=== PATIENT | female | born 2000 | race Caucasian/White ===

== ENCOUNTER 2018-01-20 18:24 | Emergency (ER) | payer BC, MEDICAID ==
[~2018-01-20 18:24] MED LIST: CEPH500C24 PO; LOR5/325 PO
[2018-01-20] MEDS ORDERED: NS(*) 0.9% 1000 ML BAG 1,000 ML IV ONE (18:44)
--- NOTE | 2018-01-20 18:48 | ER Report ---
History and Physical Time Seen By MD: 18:46 Hx. of Stated Complaint: PASSED OUT. CUT ON CHIN, BIT TONGUE, SCUFFS ON BOTH KNEES HPI/ROS CC: Syncopal episode HISTORY OF PRESENT ILLNESS: Patient is a 17-year-old female here status post syncopal episode shortly prior to arrival while at a [employer]. Patient reports having similar episodes in the past which have become more and more frequent. Patient reports that she became acutely dizzy and then lost consciousness and was witnessed to have shaking activity after passing out with confusion after the episode. Patient reportedly fell forward and struck her chin however denies headache, blurred vision, difficulty closing her mouth, chest pain, shortness breath, fevers or chills. Patient has not had prior workup for this complaint and has not been evaluated by a neurologist. REVIEW OF SYSTEMS: Constitutional: No fever, no chills. Eyes: No discharge. ENT: No sore throat. Cardiovascular: No chest pain, no palpitations. Respiratory: No cough, no shortness of breath. Gastrointestinal: No abdominal pain, no vomiting. Genitourinary: No hematuria. Musculoskeletal: No back pain. Skin: No rashes. Neurological: + mild headache. Allergies: Coded Allergies: No Known Drug Allergies (Unverified , 01/20/18) Home Meds No Active Prescriptions or Reported Meds Hx Smoking: No Smoking Status: Never Smoker Exposure to Second Hand Smoke?: No Hx Substance Use Disorder: Yes (WEED) Hx Alcohol Use: No Constitutional Vital Sign - Last 24 Hours 01/20/18 01/20/18 01/20/18 01/20/18 18:30 18:32 18:39 19:00 Temp 98.3 Pulse 89 85 Resp 16 12 B/P (MAP) 119/78 (92) 119/78 125/84 (98) Pulse Ox 98 97 O2 Delivery Room Air 01/20/18 01/20/18 01/20/18 01/20/18 19:24 19:54 20:00 20:09 Pulse 89 82 84 Resp 13 12 8 B/P (MAP) 106/69 (81) Pulse Ox 96 97 01/20/18 01/20/18 01/20/18 20:14 20:29 20:43 Pulse 80 72 85 Resp 9 6 16 B/P (MAP) 132/88 (103) Pulse Ox 95 95 95 O2 Delivery Room Air Physical Exam General Appearance: The patient is alert, has no immediate need for airway protection and no signs of toxicity. No acute distress Eyes: Pupils equal and round no pallor or injection. ENT, Mouth: Mucous membranes are moist, + small abrasion on chin Respiratory: There are no retractions, lungs are clear to auscultation. Cardiovascular: Regular rate and rhythm. Gastrointestinal: Abdomen is soft and non tender, no masses, bowel sounds normal. Neurological: No focal deficits Skin: Warm and dry, no rashes. Musculoskeletal: Neck is supple non tender. Extremities are nontender, nonswollen and have full range of motion. DIFFERENTIAL DIAGNOSIS: After history and physical exam differential diagnosis was considered for electrolyte imbalance, intracranial mass, dehydration, vasovagal episode, seizure disorder Medical Decision Making Data Points Result Diagram: 01/20/18184901/20/181849 Laboratory Hematology Test 01/20/18 18:50 01/20/18 20:24 Red Blood Count 5.28 M/uL (4.17-5.56) Mean Corpuscular Volume 90.1 fL (80.0-96.0) Mean Corpuscular Hemoglobin 31.6 pg (26.0-33.0) Mean Corpuscular Hemoglobin Concent 35.0 g/dL (32.0-36.0) Red Cell Distribution Width 12.9 % (11.5-14.5) Mean Platelet Volume 9.6 fL (7.2-11.1) Neutrophils (%) (Auto) 58.7 % (39.4-72.5) Lymphocytes (%) (Auto) 31.8 % (17.6-49.6) Monocytes (%) (Auto) 6.9 % (4.1-12.4) Eosinophils (%) (Auto) 1.8 % (0.4-6.7) Basophils (%) (Auto) 0.8 % (0.3-1.4) Nucleated RBC Relative Count (auto) 0.0 /100WBC Neutrophils # (Auto) 4.8 K/uL (2.0-7.4) Lymphocytes # (Auto) 2.6 K/uL (1.3-3.6) Monocytes # (Auto) 0.6 K/uL (0.3-1.0) Eosinophils # (Auto) 0.1 K/uL (0.0-0.5) Basophils # (Auto) 0.1 K/uL (0.0-0.1) Nucleated RBC Absolute Count (auto) 0.00 K/uL Sodium Level 140 mmol/L (137-145) Potassium Level 3.7 mmol/L (3.5-5.0) Chloride Level 104 mmol/L (98-107) Carbon Dioxide Level 26 mmol/L (22-31) Blood Urea Nitrogen 13 mg/dl (7-18) Creatinine 0.80 mg/dl (0.52-1.04) Glomerular Filtration Rate Calc > 60.0 Random Glucose 114 mg/dl (75-110) Calcium Level 9.1 mg/dl (8.4-10.2) Total Bilirubin 0.9 mg/dl (0.2-1.3) Aspartate Amino Transf (AST/SGOT) 17 U/L (0-35) Alanine Aminotransferase (ALT/SGPT) 19 U/L (0-56) Alkaline Phosphatase 45 U/L (0-126) Total Protein 7.7 g/dl (6.3-8.2) Albumin 4.6 g/dl (3.5-5.0) Human Chorionic Gonadotropin, Qual Negative (NEGATIVE) Urine Color Straw Urine Clarity Clear Urine pH 6.0 pH (4.8-9.5) Urine Specific [place] 1.005 Urine Protein Negative mg/dL (NEGATIVE) Urine Glucose (UA) Negative mg/dL (NEGATIVE) Urine Ketones Negative mg/dL (NEGATIVE) Urine Blood Negative (NEGATIVE) Urine Nitrite Negative (NEGATIVE) Urine Bilirubin Negative (NEGATIVE) Urine Urobilinogen Negative mg/dL (0.2-1.9) Urine Leukocyte Esterase Negative (NEGATIVE) Urine RBC None /HPF (0-2/HPF) Urine WBC <1 /HPF (0-5/HPF) Urine Squamous Epithelial Cells Many /LPF (</=FEW) Urine Bacteria Negative /HPF (NONE-FEW) Urine Mucus Few /HPF (NONE-FEW) Chemistry Test 01/20/18 18:50 01/20/18 20:24 White Blood Count 8.1 k/uL (4.5-11.0) Red Blood Count 5.28 M/uL (4.17-5.56) Hemoglobin 16.7 g/dL (12.0-16.0) Hematocrit 47.6 % (34.0-47.0) Mean Corpuscular Volume 90.1 fL (80.0-96.0) Mean Corpuscular Hemoglobin 31.6 pg (26.0-33.0) Mean Corpuscular Hemoglobin Concent 35.0 g/dL (32.0-36.0) Red Cell Distribution Width 12.9 % (11.5-14.5) Platelet Count 212 K/uL (150-450) Mean Platelet Volume 9.6 fL (7.2-11.1) Neutrophils (%) (Auto) 58.7 % (39.4-72.5) Lymphocytes (%) (Auto) 31.8 % (17.6-49.6) Monocytes (%) (Auto) 6.9 % (4.1-12.4) Eosinophils (%) (Auto) 1.8 % (0.4-6.7) Basophils (%) (Auto) 0.8 % (0.3-1.4) Nucleated RBC Relative Count (auto) 0.0 /100WBC Neutrophils # (Auto) 4.8 K/uL (2.0-7.4) Lymphocytes # (Auto) 2.6 K/uL (1.3-3.6) Monocytes # (Auto) 0.6 K/uL (0.3-1.0) Eosinophils # (Auto) 0.1 K/uL (0.0-0.5) Basophils # (Auto) 0.1 K/uL (0.0-0.1) Nucleated RBC Absolute Count (auto) 0.00 K/uL Glomerular Filtration Rate Calc > 60.0 Calcium Level 9.1 mg/dl (8.4-10.2) Total Bilirubin 0.9 mg/dl (0.2-1.3) Aspartate Amino Transf (AST/SGOT) 17 U/L (0-35) Alanine Aminotransferase (ALT/SGPT) 19 U/L (0-56) Alkaline Phosphatase 45 U/L (0-126) Total Protein 7.7 g/dl (6.3-8.2) Albumin 4.6 g/dl (3.5-5.0) Human Chorionic Gonadotropin, Qual Negative (NEGATIVE) Urine Color Straw Urine Clarity Clear Urine pH 6.0 pH (4.8-9.5) Urine Specific [place] 1.005 Urine Protein Negative mg/dL (NEGATIVE) Urine Glucose (UA) Negative mg/dL (NEGATIVE) Urine Ketones Negative mg/dL (NEGATIVE) Urine Blood Negative (NEGATIVE) Urine Nitrite Negative (NEGATIVE) Urine Bilirubin Negative (NEGATIVE) Urine Urobilinogen Negative mg/dL (0.2-1.9) Urine Leukocyte Esterase Negative (NEGATIVE) Urine RBC None /HPF (0-2/HPF) Urine WBC <1 /HPF (0-5/HPF) Urine Squamous Epithelial Cells Many /LPF (</=FEW) Urine Bacteria Negative /HPF (NONE-FEW) Urine Mucus Few /HPF (NONE-FEW) Urinalysis Test 01/20/18 20:24 Urine Color Straw Urine Clarity Clear Urine pH 6.0 pH (4.8-9.5) Urine Specific [place] 1.005 Urine Protein Negative mg/dL (NEGATIVE) Urine Glucose (UA) Negative mg/dL (NEGATIVE) Urine Ketones Negative mg/dL (NEGATIVE) Urine Blood Negative (NEGATIVE) Urine Nitrite Negative (NEGATIVE) Urine Bilirubin Negative (NEGATIVE) Urine Urobilinogen Negative mg/dL (0.2-1.9) Urine Leukocyte Esterase Negative (NEGATIVE) Urine RBC None /HPF (0-2/HPF) Urine WBC <1 /HPF (0-5/HPF) Urine Squamous Epithelial Cells Many /LPF (</=FEW) Urine Bacteria Negative /HPF (NONE-FEW) Urine Mucus Few /HPF (NONE-FEW) EKG/Imaging EKG Interpretation 12 lead EKG: Normal sinus rhythm, rate 81, QTc interval 413 no ischemic changes Rhythm: Normal sinus rhythm [place]: normal QRS: normal ST segments: normal Monitor Interpretation: Normal Sinus Rhythm Imaging 2 VIEWS CHEST INDICATION: Syncope. COMPARISON: None available FINDINGS: Cardiomediastinal silhouette and pulmonary vessels within normal limits. There is no focal infiltrate or lobar consolidation. There is no pneumothorax or pleural effusion. No nodule. Upper abdomen is unremarkable. No acute bony abnormality. IMPRESSION: 1. No acute cardiopulmonary process. CT Head without contrast Indication: Syncope. Fell and hit right side of forehead. Comparison: None available Technique: Axial CT images were obtained through the brain from the skull base to the vertex without administration of IV contrast. Reformatted coronal and sagittal images were also obtained. One of the following dose optimization techniques was utilized in the performance of this exam: automated exposure control; adjustment of the mA and/ or kV according to the patient's size; or use of an iterative reconstruction technique. Specific details can be referenced in the facility's radiology CT exam operational policy. Findings: No evidence of mass, mass effect, or midline shift. No acute intracranial hemorrhage or acute territorial infarction. No extra-axial fluid collection or hydrocephalus. No abnormal density. Munoz/ white matter differentiation appears normal. Bony structures show no fractures or lesions. The visualized paranasal sinuses and mastoid air cells are clear. IMPRESSION: 1. Negative unenhanced CT of the head. ED Course/Re-evaluation ED Course Patient is a 17-year-old female here with complaints of a syncopal episode while at the [employer]. Patient reportedly fell foreign and struck her chin on the floor as witnessed by the patient's sister. Patient had shaking activity after the episode and was confused and did not recognize her sister. Patient admits to several similar episodes in the past which have become more and more frequent. Patient has had no prior workup regarding her syncopal episodes. Depart Departure Latest Vital Signs Vital Signs Date Time Temp Pulse Resp B/P (MAP) Pulse Ox O2 Delivery O2 Flow Rate FiO2 01/20/18 20:43 85 16 132/88 (103) 95 Room Air 01/20/18 18:32 98.3 Impression: Primary Impression: Syncope and collapse Condition: Improved Disposition: HOME OR SELF-CARE Referrals: HARRY BRUMFIELD MD (PCP) New Scripts No Active Prescriptions or Reported Meds Patient Instructions: Syncope (ED) Additional Instructions: Please follow up with your family doctor in the next week. Please call to set up an appointment with neurology to evaluate for syncopal episodes and possible seizure-like activity. Please return promptly if you develop recurrent syncopal episodes, headache, blurred vision, fevers or chills. SHARYN GILL DO Jan 20, 2018 18:48
--- NOTE | 2018-01-20 19:01 | EKG ---
[place] [facility] [place] AGATA MENDOZA : [id number] MR: [id number] V: [id number] EXAM DATE: ORDERING PHYSICIAN: SHARYN GILL TECHNOLOGIST: RONALD Test Reason : SYNCOPE Blood Pressure : / mmHG Vent. Rate : 081 BPM Atrial Rate : 081 BPM P-R Int : 128 ms QRS Dur : 086 ms QT Int : 356 ms P-R-T Axes : 060 010 053 degrees QTc Int : 413 ms Sinus rhythm Nonspecific T wave abnormality Abnormal ECG No previous ECGs available Confirmed by BIANCA DANIEL ([id number]) on 01/20/2018 10:09:12 PM Referred By: BRIDGET Confirmed By:BIANCA DANIEL
[2018-01-20 19:05] LABS: PLATELET COUNT, AUTOMATED 212 K/uL (150-450)
[2018-01-20] MEDS ORDERED: ACETAMINOPHEN 500 MG TAB PO ONE (19:25)
--- NOTE | 2018-01-20 20:11 | RADIOLOGY IMAGING REPORT ---
FACILITY: [facility] PATIENT NAME: Ghislaine Duran : 2000 MR: [id number] V: [id number] EXAM DATE: ORDERING PHYSICIAN: SHARYN GILL TECHNOLOG[place]: [place] [facility] [place]hislaine [place] : 2000 Visit/Account:[id number] Date of Sevice: 01/20/2018 2 VIEWS CHEST INDICATION: Syncope. COMPARISON: None available FINDINGS: Cardiomediastinal silhouette and pulmonary vessels within normal limits. There is no focal infiltrate or lobar consolidation. There is no pneumothorax or pleural effusion. No nodule. Upper abdomen is unremarkable. No acute bony abnormality. IMPRESSION: 1. No acute cardiopulmonary process. Report Dictated By: Mohit Gaitan at 01/20/2018 8:06 PM Report E-Signed By: Mohit Gaitan at 01/20/2018 8:09 PM WSN:[id number]
--- NOTE | 2018-01-20 20:19 | RADIOLOGY IMAGING REPORT ---
FACILITY: [facility] PATIENT NAME: Ghislaine Duran : 2000 MR: [id number] V: [id number] EXAM DATE: ORDERING PHYSICIAN: SHARYN GILL TECHNOLOGIST: Location: [facility] [place] Patient: Ghislaine Duran : 2000 Visit/Account:[id number] Date of Sevice: 01/20/2018 CT Head without contrast Indication: Syncope. Fell and hit right side of forehead. Comparison: None available Technique: Axial CT images were obtained through the brain from the skull base to the vertex without administration of IV contrast. Reformatted coronal and sagittal images were also obtained. One of the following dose optimization techniques was utilized in the performance of this exam: autom ated exposure control; adjustment of the mA and/or kV according to the patient's size; or use of an i terative reconstruction technique. Specific details can be referenced in the facility's radiology CT exam operational policy. Findings: No evidence of mass, mass effect, or midline shift. No acute intracranial hemorrhage or acute territorial infarction. No extra-axial fluid collection or hydrocephalus. No abnormal density. Munoz/white matter differentiat ion appears normal. Bony structures show no fractures or lesions. The visualized paranasal sinuses and mastoid air cells are clear. IMPRESSION: 1. Negative unenhanced CT of the head. Report Dictated By: Mohit Gaitan at 01/20/2018 8:12 PM Report E-Signed By: Mohit Gaitan at 01/20/2018 8:15 PM WSN:[id number]
[2018-01-20 20:43] VITALS: BP 132/88
== END 2018-01-20 21:00 | disposition home or self-care (01) ==
LOC: ER 18:39
DX: R55 Syncope and collapse (principal)
CPT/HCPCS: 70450; 71046; 81001; 84703; 85025; 93005; 96360; 99284; J7030; 82040; 82247; 82310; 82374; 82435; 82565; 82947; 84075; 84132; 84155; 84295; 84450; 84460; 84520